=== PATIENT | male | born 1950 | race Caucasian/White ===

== ENCOUNTER → 2016-09-11 | Outpatient (CLI) | payer OTHER ==
--- NOTE | 2016-09-11 17:09 | DI ---
MRI MRA NECK W/O CN,09/11/2016 3:01 PM: Clinical History: Dizziness Previous Exam: None at this facility. Findings: Multiplanar MR images are obtained through the neck following a 2-D [id number] protocol, and demo nstrate some mild loss of signal within the carotid bulbs bilaterally. The aorta, aortic arch and major aortic vessels are not well evaluated on this exam. The vertebral arteries and basilar artery are unremarkable. Visualized portions of the hoh of [place] are unremarkable. Impression: Mild loss of signal within the carotid bulbs bilaterally is most consistent with some mild plaque for mation and some stenosis although this would measure less than 50%. This may also be due to turbulent flow or flow that is out of the plane causing some signal dropout.
== END ==
LOC: MRI 14:54
PROVIDERS: ATTEND Family Medicine
DX: R42 Dizziness and giddiness (principal)
CPT/HCPCS: 70547

== ENCOUNTER → 2016-09-12 | Outpatient (CLI) | payer OTHER ==
--- NOTE | 2016-09-13 14:17 | DI ---
MRI MRA HEAD W/O CN,09/12/2016 7:51 AM: Clinical History: Dizziness Previous Exam: None at this facility. Findings: Multiplanar MR images are obtained through the brain following an MR angiogram protocol, and demonstr ate a normal viejas of [place]. The distal vertebral arteries and the basilar artery are normal. Posterior to indicating arteries are diminutive bilaterally. There is no aneurysmal dilation. The anterior cerebral arteries and middle cerebral arteries are also normal. There is no significant stenosis of the distal internal carotid arteries. Impression: Normal MRA brain.
== END ==
LOC: MRI 07:43
PROVIDERS: ATTEND Family Medicine
DX: R42 Dizziness and giddiness (principal)
CPT/HCPCS: 70544